=== PATIENT | female | born 1995 | race American Indian/Alaskan Native ===

== ENCOUNTER 2020-11-22 17:07 | Outpatient (CLI) | payer MEDICAID ==
[2020-11-22] MEDS ORDERED: LACTATED RINGERS 1,000 ML IV ONE (17:37)
[2020-11-22 17:50] VITALS: BP 101/57
[2020-11-22 18:11] LABS: Bacteria,Urine 1+ /HPF (Negative); Bilirubin,Urine NEG (Negative); Blood,Urine NEG (Negative); Color,Urine Yellow (Yellow); Protein,Urine <15 mg/dL mg/dL (Negative); Urobilinogen,Urine < 2.0 mg/dL (<2.0)
== END 2020-11-22 18:37 | disposition home or self-care (01) ==
LOC: TRG 17:07 → APU 17:10 → TRG 18:37
PROVIDERS: ATTEND Obstetrics & Gynecology
DX: O26.892 Other specified pregnancy related conditions, second trimester (principal); M54.5 Low back pain; Z3A.27 27 weeks gestation of pregnancy
CPT/HCPCS: 81001

== ENCOUNTER 2020-12-31 12:19 | Outpatient (CLI) | payer MEDICAID, OTHER ==
[2020-12-31 13:23] VITALS: BP 118/56
--- NOTE | 2020-12-31 14:06 | Ultrasound Report ---
ULTRASOUND OBSTETRIC LIMITED ULTRASOUND BIOPHYSICAL PROFILE INDICATION / CLINICAL INFORMATION: HA/BPP. COMPARISON: None available. FINDINGS: BREATHING MOVEMENT = 2 GROSS BODY MOVEMENT = 2 TONE = 2 QUALITATIVE AMNIOTIC FLUID VOLUME = 2 TOTAL BIOPHYSICAL SCORE = 8/8 AMNIOTIC FLUID INDEX (cm) = 13.4 PRESENTATION: Cephalic. HEART RATE (beats per minute): 141 ADDITIONAL FINDINGS: None. IMPRESSION: 1. Biophysical Score = 8/8 Signer Name: Carlos Brantley MD Signed: 12/31/2020 2:01 PM Workstation Name: [id number]
== END 2020-12-31 14:15 | disposition home or self-care (01) ==
LOC: TRG 12:19 → APU 12:20 → TRG 14:15
PROVIDERS: ATTEND Obstetrics & Gynecology
DX: O42.913 Preterm premature rupture of membranes, unspecified as to length of time between rupture and onset of labor, third trimester (principal); R10.9 Unspecified abdominal pain; Z3A.33 33 weeks gestation of pregnancy
CPT/HCPCS: 36415; 59025; 76815; 76819; 84112

== ENCOUNTER 2021-01-24 17:16 | Outpatient (CLI) | payer MEDICAID, OTHER ==
[2021-01-24 17:53] VITALS: BP 125/60
[2021-01-24] MEDS ORDERED: LACTATED RINGERS 500 ML IV ONE (18:15)
[2021-01-24 19:10] LABS: Bilirubin,Urine NEG (Negative); Blood,Urine NEG (Negative); Color,Urine Yellow (Yellow); Protein,Urine <15 mg/dL mg/dL (Negative)
[2021-01-24 19:13] LABS: Bacteria,Urine 1+ /HPF (Negative); Mucus,Urine FEW /HPF; WBC,Urine < 1.0 /HPF (0.0-6.0)
[2021-01-26 17:15] LABS: Renal Epithelial Cells,Urine <1 /LPF
== END 2021-01-24 19:38 | disposition home or self-care (01) ==
LOC: TRG 17:16 → APU 17:17 → TRG 19:38
PROVIDERS: ATTEND Obstetrics & Gynecology
DX: Z34.93 Encounter for supervision of normal pregnancy, unspecified, third trimester (principal); Z3A.34 34 weeks gestation of pregnancy
CPT/HCPCS: 59025; 81001

== ENCOUNTER 2021-01-29 16:59 | Outpatient (CLI) | payer MEDICAID ==
[2021-01-29] MEDS ORDERED: LACTATED RINGERS 1,000 ML IV ONE (17:12)
[2021-01-29 17:45] VITALS: BP 119/59
[2021-01-29 18:26] LABS: Bilirubin,Urine NEG (Negative); Blood,Urine NEG (Negative); Color,Urine Yellow (Yellow); Protein,Urine <15 mg/dL mg/dL (Negative)
[2021-01-29 18:31] LABS: Amphetamine Screen,Urine Negative; Benzodiazepines Screen,Urine Negative; Cannabinoid Screen,Urine Negative; Cocaine Screen,Urine Negative; Methadone Screen,Urine Negative; Opiate Screen,Urine Negative
== END 2021-01-29 18:05 | disposition home or self-care (01) ==
LOC: TRG 16:59 → APU 17:01 → TRG 18:05
PROVIDERS: ATTEND Obstetrics & Gynecology
DX: O26.892 Other specified pregnancy related conditions, second trimester (principal); Z3A.27 27 weeks gestation of pregnancy
CPT/HCPCS: 59025; 80307; 81001

== ENCOUNTER 2021-02-01 06:21 | Outpatient (CLI) | payer MEDICAID ==
[2021-02-01] MEDS: MORPHINE 2 MG/1 ML INJ IM SCH (11:25)
[2021-02-01 11:26] VITALS: BP 130/73
== END 2021-02-01 11:44 | disposition home or self-care (01) ==
LOC: TRG 06:21 → APU 06:23 → TRG 11:44
PROVIDERS: ATTEND Obstetrics & Gynecology
DX: Z34.93 Encounter for supervision of normal pregnancy, unspecified, third trimester (principal); Z3A.37 37 weeks gestation of pregnancy
CPT/HCPCS: 59025; 86850; 86900; 86901; J2270

== ENCOUNTER 2021-02-02 10:07 | Outpatient (CLI) | payer MEDICAID ==
[2021-02-02 10:52] VITALS: BP 116/67
== END 2021-02-02 16:00 | disposition home or self-care (01) ==
LOC: TRG 10:07 → APU 10:13 → TRG 16:00
PROVIDERS: ATTEND Obstetrics & Gynecology
DX: Z34.93 Encounter for supervision of normal pregnancy, unspecified, third trimester (principal); Z3A.37 37 weeks gestation of pregnancy
CPT/HCPCS: 59025

== ENCOUNTER 2021-02-05 02:20 | Inpatient (IN) | payer MEDICAID ==
[2021-02-05] MEDS ORDERED: METHYLERGONOVINE MALEATE 0.2 MG/ML VIAL IM PRN (03:05)
[2021-02-05] MEDS ORDERED: TERBUTALINE 1 MG/1 ML INJ SUB-Q PRN (03:05)
[2021-02-05] MEDS ORDERED: ONDANSETRON 4 MG/2 ML INJ IV PRN ×2 (03:05→06:03)
[2021-02-05] MEDS ORDERED: miSOPROStol 200 MCG TAB PR PRN (03:05)
[2021-02-05] MEDS ORDERED: CARBOPROST TROMETHAMINE 250 MCG/1 ML INJ IM PRN (03:05)
[2021-02-05] MEDS ORDERED: ACETAMINOPHEN 325 MG TAB PO PRN ×2 (03:05→06:03)
[2021-02-05] MEDS ORDERED: ePHEDrine SULFATE 50 MG/1 ML INJ IV PRN (03:05)
[2021-02-05] MEDS ORDERED: OXYTOCIN 10 UNIT/1 ML INJ IM PRN (03:05)
[2021-02-05] MEDS ORDERED: BUTORPHANOL 2 MG/1 ML INJ IV PRN (03:05)
[2021-02-05] MEDS ORDERED: fentaNYL 100 MCG/2 ML INJ IV PRN (03:05)
[2021-02-05] MEDS ORDERED: LOPERAMIDE 2 MG CAP PO PRN (03:05)
[2021-02-05] MEDS ORDERED: LIDOCAINE (2%) 20 MG/1 ML VIAL 20 ML MDV INFILTRATI ONE (03:05)
[2021-02-05] MEDS ORDERED: MINERAL OIL 30 ML ORAL LIQD PO PRN (03:05)
[2021-02-05] MEDS ORDERED: LACTATED RINGERS 1,000 ML IV SCH (03:15)
[2021-02-05] MEDS ORDERED: AMPICILLIN/NS 2 GM/100 ML 2 GM/100 ML BAG IV ONE (03:45)
[2021-02-05] MEDS ORDERED: OXYTOCIN DRIP 30 UNITS/500 ML BAG IV SCH (04:00)
[2021-02-05 04:07] LABS: Hematocrit 28.3 % (30.3-42.9); Hemoglobin 9.7 gm/dl (10.1-14.3); Mean Corpuscular HGB Conc 34 % (30-34); Mean Corpuscular Volume 76 fl (79-97); Platelet Count 197 K/mm3 (140-440); Red Blood Count 3.73 M/mm3 (3.65-5.03); Red Cell Distribution Width 16.3 % (13.2-15.2)
[2021-02-05] MEDS ORDERED: MORPHINE 4 MG/1 ML INJ IV PRN (05:02)
[2021-02-05] MEDS ORDERED: diphenhydrAMINE 25 MG CAP PO PRN (06:03)
[2021-02-05] MEDS ORDERED: LANOLIN/ZINC/DIMETHICONE (LANSINOH) 7 GM TP PRN (06:03)
[2021-02-05] MEDS ORDERED: WITCH HAZEL/ GLYCERIN PAD TP PRN (06:03)
[2021-02-05] MEDS ORDERED: HYDROcodone/ACETAMINOPHEN 5-325 MG TAB PO PRN (06:03)
[2021-02-05] MEDS ORDERED: PROMETHAZINE 25 MG RECT SUPP PR PRN (06:03)
[2021-02-05] MEDS ORDERED: PROMETHAZINE 25 MG TAB PO PRN (06:03)
[2021-02-05] MEDS ORDERED: MAGNESIUM HYDROXIDE (MOM) ORAL LIQD UDC PO PRN (06:03)
--- NOTE | 2021-02-05 06:13 | History and Physical Report ---
History of Present Illness Date of examination: 02/05/21 Date of admission: 02/05/21 03:05 Chief complaint: Came in active labor. History of present illness: . RAMON 02/18/21. Scant recent care. Past History Past Medical History: no pertinent history - Obstetrical History Expected Date of Delivery: 02/18/21 Actual Gestation: 38 Week(s) 1 Day(s) : 6 Para: 3 Medications and Allergies Allergies Allergy/AdvReac Type Severity Reaction Status Date / Time No Known Allergies Allergy Verified 12/31/20 12:35 Home Medications Medication Instructions Recorded Confirmed Last Taken Type One Daily Tablet 1 tab PO 11/22/20 Unknown History Active Meds: Active Medications Acetaminophen (Acetaminophen 325 Mg Tab) 650 mg PO Q4H PRN PRN Reason: Pain, Mild (1-3) Acetaminophen (Acetaminophen 325 Mg Tab) 650 mg PO Q4H PRN PRN Reason: Pain MILD(1-3)/Fever >100.5/BLAKELY Hydrocodone Bitart/Acetaminophen (Hydrocodone/Acetaminophen 5-325 Mg Tab) 2 each PO Q6H PRN PRN Reason: Pain, Moderate (4-6) Bisacodyl (Bisacodyl 10 Mg Rect Supp) 10 mg IL BID PRN PRN Reason: Constipation Butorphanol Tartrate (Butorphanol 2 Mg/1 Ml Inj) 1 mg IV Q2H PRN PRN Reason: Pain, Moderate(4-6) LABOR PAIN Carboprost Tromethamine (Carboprost Tromethamine 250 Mcg/1 Ml Inj) 250 mcg IM ONCE PRN PRN Reason: Uterine Bleeding Diphenhydramine HCl (Diphenhydramine 25 Mg Cap) 25 mg PO Q6H PRN PRN Reason: Itching Ephedrine Sulfate (Ephedrine Sulfate 50 Mg/1 Ml Inj) 10 mg IV Q2M PRN PRN Reason: Hypotension Fentanyl (Fentanyl 100 Mcg/2 Ml Inj) 100 mcg IV Q2H PRN PRN Reason: Pain,Severe (7-10) LABOR PAIN Last Admin: 02/05/21 03:26 Dose: 100 mcg Documented by: Lactated Ringer's (Lactated Ringers) 1,000 mls @ 125 mls/hr IV DIRECT KIRIT Oxytocin/Sodium Chloride (Pitocin/Ns 30 Unit/500ml) 30 units in 500 mls @ 40 mls/hr IV TITR KIRIT; Protocol Last Admin: 02/05/21 05:28 Dose: 165 ml/hr, 165 mls/hr Documented by: Ibuprofen (Ibuprofen 600 Mg Tab) 600 mg PO Q6H KIRIT Loperamide HCl (Loperamide 2 Mg Cap) 2 mg PO ONCE PRN PRN Reason: give with Hemabate Magnesium Hydroxide (Magnesium Hydroxide (Mom) Oral Liqd Udc) 30 ml PO HS PRN PRN Reason: Constipation Methylergonovine Maleate (Methylergonovine Maleate 0.2 Mg/Ml Vial) 0.2 mg IM ONCE PRN PRN Reason: Uterine Bleeding Mineral Oil (Mineral Oil 30 Ml Oral Liqd) 30 ml PO QHS PRN PRN Reason: Constipation Misoprostol (Misoprostol 200 Mcg Tab) 800 mcg IL ONCE PRN PRN Reason: Uterine Bleeding Morphine Sulfate (Morphine 4 Mg/1 Ml Inj) 4 mg IV Q4H PRN PRN Reason: Pain , Severe (7-10) Last Admin: 02/05/21 05:10 Dose: 4 mg Documented by: Multi-Ingredient Ointment (Lanolin/Zinc/Dimethicone (Lansinoh) 7 Gm) 1 applic TP PRN PRN PRN Reason: Sore Nipples Multivitamins/Iron/Calcium ( Iht06-Tb Fumarate-[facility]olic Acid Vit Tab) [facility] Ondansetron HCl (Ondansetron 4 Mg/2 Ml Inj) 4 mg IV Q8H PRN PRN Reason: Nausea And Vomiting Ondansetron HCl (Ondansetron 4 Mg/2 Ml Inj) 4 mg IV Q8H PRN PRN Reason: Nausea And Vomiting Oxytocin (Oxytocin 10 Unit/1 Ml Inj) 10 unit IM ONCE PRN PRN Reason: Uterine Bleeding Promethazine HCl (Promethazine 25 Mg Rect Supp) 25 mg IL Q6H PRN PRN Reason: Nausea And Vomiting Promethazine HCl (Promethazine 25 Mg Tab) 25 mg PO Q6H PRN PRN Reason: Nausea And Vomiting Sodium Chloride (Sodium Chloride 0.9% 10 Ml Flush Syringe) 10 ml IV PRN NR Terbutaline Sulfate (Terbutaline 1 Mg/1 Ml Inj) 0.25 mg SUB-Q ONCE PRN PRN Reason: Hyperstimulation/Hypertonicity Witch Fatimah/Glycerin (Witch Fatimah/ Glycerin Pad) 1 each TP PRN PRN PRN Reason: Hemorrhoid/cleansing/soothing Review of Systems All systems: negative - Vital Signs Vital signs: Vital Signs Temp Pulse Resp BP Pulse Ox 98.7 F 72 18 121/64 98 02/05/21 02:38 02/05/21 02:38 02/05/21 02:38 02/05/21 02:38 02/05/21 02:38 Temp Pulse Resp BP Pulse Ox 98.9 F 71 17 115/57 100 02/05/21 05:40 02/05/21 05:38 02/05/21 03:14 02/05/21 05:38 02/05/21 03:31 - Physical Exam Lungs: Positive: Normal air movement Abdomen: Positive: normal appearance, distention, normal bowel sounds Genitourinary (Female): Positive: normal external genitalia, normal perenium Vagina: Positive: normal moisture Uterus: Positive: enlarged, normal contour Deep Tendon Reflex Grade: Normal +2 - Obstetrical FHR: auscultation normal, category 1 Cervical Dilatation: 10 Cervical Effacement Percentage: 100 station: 0+2 Results Result Diagrams: 02/05/21 03:20 Abnormal lab results 02/05/21 02/05/21 Range/Units 02:37 03:20 Hgb 9.7 L (10.1-14.3) gm/dl Hct 28.3 L (30.3-42.9) % MCV 76 L (79-97) fl MCH 26 L (28-32) pg RDW 16.3 H (13.2-15.2) % Membranes Rupture Positive A (Negative) All other labs normal. Assessment and Plan - Patient Problems (1) Active labor at term Current Visit: Yes Status: Acute Plan to address problem: vaginal delivery imminent.
--- NOTE | 2021-02-05 06:18 | Procedure Note ---
OB Delivery Note - Delivery Date of Delivery: 02/05/21 Surgeon: STACY FREEMAN Estimated blood loss: 500cc - Vaginal Delivery position: OA Intrapartum events: none Delivery induction: none Delivery monitor: external FHT, external uterine Route of delivery: Delivery placenta: spontaneous, expressed Episiotomy: none Delivery laceration: 3rd degree Delivery repair: vicryl Anesthesia: local, intravenous - A at 1 minute: 8 at 5 minutes: 9 (Wt 11lbs 5oz.) Infant Gender: Male
[2021-02-05] MEDS: IBUPROFEN 600 MG TAB PO SCH ×2 (12:57→22:43)
[2021-02-05] MEDS: PRENATAL VIT27-FE FUMARATE-FOLIC ACID VIT TAB PO SCH (12:59)
[2021-02-05 14:51] LABS: Eosinophils % (Auto) 0.1 % (0.0-4.3); Monocytes # (Auto) 1.6 K/mm3 (0.0-0.8); Monocytes % (Auto) 10.5 % (0.0-7.3)
[2021-02-05 15:05] LABS: Basophils % (Auto) 0.3 % (0.0-1.8); Hematocrit 24.3 % (30.3-42.9); Lymphocytes % (Auto) 12.5 % (13.4-35.0); Mean Corpuscular HGB Conc 33 % (30-34); Mean Corpuscular Volume 76 fl (79-97); Platelet Count 177 K/mm3 (140-440); Red Cell Distribution Width 16.2 % (13.2-15.2)
[2021-02-05 15:06] LABS: Lymphocytes # (Auto) 1.9 K/mm3 (1.2-5.4)
[2021-02-05 21:05] LABS: Hematocrit 27.6 % (30.3-42.9)
[2021-02-05 22:14] LABS: Amphetamine Screen,Urine Negative; Benzodiazepines Screen,Urine Negative; Cannabinoid Screen,Urine Negative; Cocaine Screen,Urine Negative; Methadone Screen,Urine Negative; Opiate Screen,Urine Negative
[2021-02-06] MEDS: PRENATAL VIT27-FE FUMARATE-FOLIC ACID VIT TAB PO SCH (10:14)
--- NOTE | 2021-02-06 10:24 | Progress Note ---
Assessment and Plan - Patient Problems (1) Active labor at term Current Visit: Yes Status: Acute (2) Status post vaginal delivery Current Visit: Yes Status: Acute Plan to address problem: . Stable. Observation to continue. If all ok may leave for home late evening today. (3) Macrosomia affecting management of mother Current Visit: Yes Status: Acute Plan to address problem: Will order a CMP. Subjective - Subjective Date of service: 02/06/21 Principal diagnosis: day 1. Interval history: . RAMON 02/18/21. Scant recent care. Patient reports: appetite normal, voiding normally, pain well controlled, ambulating normally [place]: doing well Objective - Vital Signs Latest vital signs: Vital Signs Temp Pulse Resp BP Pulse Ox Pulse Ox 02/06/21 07:45 98 02/06/21 07:29 97.9 F 58 L 16 115/53 99 02/05/21 23:53 97.6 F 73 20 115/45 98 02/05/21 16:10 97.9 F 86 20 110/60 97 Intake and Output 02/05/21 02/06/21 02/06/21 23:59 07:59 15:59 Intake Total 480 240 Output Total 1600 Balance -1120 240 Intake: Oral 480 240 Output: Urine 1600 Void 1600 Other: Total, Intake Amount 120 120 Total, Output Amount 800 # Voids Void 1 - Exam Breasts: Present: deferred Lungs: Present: Normal air movement Abdomen: Present: normal appearance, soft, normal bowel sounds Uterus: Present: normal, firm Extremities: Present: normal Deep Tendon Reflex Grade: Normal +2 - Labs Labs: Abnormal lab results 02/05/21 02/05/21 Range/Units 14:13 20:05 WBC 14.8 H (4.5-11.0) K/mm3 RBC 3.20 L (3.65-5.03) M/mm3 Hgb 8.0 L 9.0 L (10.1-14.3) gm/dl Hct 24.3 L 27.6 L (30.3-42.9) % MCV 76 L (79-97) fl MCH 25 L (28-32) pg RDW 16.2 H (13.2-15.2) % Lymph % (Auto) 12.5 L (13.4-35.0) % [place] % (Auto) 10.5 H (0.0-7.3) % [place] # (Auto) 1.6 H (0.0-0.8) K/mm3 Seg Neutrophils % 76.6 H (40.0-70.0) % Seg Neutrophils # 11.4 H (1.8-7.7) K/mm3
--- NOTE | 2021-02-06 10:33 | Discharge Summary ---
Providers - Providers Date of Admission: 02/05/21 03:05 Date of discharge: 02/06/21 Attending physician: STACY FREEMAN MD Primary care physician: STACY FREEMAN MD Hospitalization Reason for admission: active labor, rupture of membranes Delivery: Episiotomy: none Laceration: 3rd degree Other procedures: none complications: none Discharge diagnosis: IUP at term delivered [place] baby: male Condition at discharge: Good Disposition: 01 HOME / SELF CARE / HOMELESS - Discharge Diagnoses (1) Active labor at term Status: Resolved (2) Status post vaginal delivery Status: Acute (3) Macrosomia affecting management of mother Status: Resolved Plan - Provider Discharge Summary Activity: routine, no sex for 6 weeks, no heavy lifting 4 weeks, no strenuous exercise Diet: routine Instructions: routine Additional instructions: [] Smoking cessation referral if applicable(refer to patient education folder for contact #) [] Refer to [facility] Booklet Call your doctor immediately for: * Fever > 100.5 * Heavy vaginal bleeding ( >1 pad per hour) * Severe persistent headache * Shortness of breath * Reddened, hot, painful area to leg or breast * Drainage or odor from incision. * Keep incision clean and dry at all times and follow doctor's instructions regarding bathing/showering - Follow up plan Follow up: STACY FREEMAN MD [Primary Care Provider] - 7 Days
[2021-02-06 11:48] LABS: Alanine Aminotransferase 12 units/L (7-56); Albumin 2.7 g/dL (3.9-5); Blood Urea Nitrogen 5 mg/dL (7-17); Calcium 8.6 mg/dL (8.4-10.2); Hemolysis Index 4
[2021-02-06 11:55] LABS: BUN/Creatinine Ratio 8
[2021-02-06] MEDS: IBUPROFEN 600 MG TAB PO SCH (12:24)
[2021-02-06 16:25] VITALS: BP 116/63
== END 2021-02-06 18:09 | disposition home or self-care (01) | DRG 775 ==
LOC: TRG 02:20 → APU 02:25 → TRG 03:05 → LD 03:05 → OB 11:30
PROVIDERS: ADMIT Obstetrics & Gynecology; ATTEND Obstetrics & Gynecology
PROC: 10E0XZZ Delivery of Products of Conception, External Approach (ICD-10-PCS; principal; 2021-02-05)
PROC: 0DQR0ZZ Repair Anal Sphincter, Open Approach (ICD-10-PCS; 2021-02-05)
DX: O36.63X0 Maternal care for excessive fetal growth, third trimester, not applicable or unspecified (principal); Z3A.38 38 weeks gestation of pregnancy; Z37.0 Single live birth; Z20.822 Contact with and (suspected) exposure to COVID-19; O70.20 Third degree perineal laceration during delivery, unspecified
CPT/HCPCS: 36415; 59025; 80053; 80307; 84112; 85014; 85018; 85025; 85027; 86592; 86706; 86762; 86850; 86900; 86901; 87806; 88307; 99211; G0378; G0463; J0290; J2270; J2590; J3010; U0003